=== PATIENT | female | born 2000 | race Two or more races ===

== ENCOUNTER 2018-01-22 20:04 | Emergency (ER) | payer SELFPAY ==
[2018-01-22 20:58] VITALS: BP 121/69; PULSE 69; RESP 16; TEMP 98.4; O2SAT 98
[2018-01-22 22:17] LABS: URINE APPEARANCE SL CLOUDY (CLEAR); URINE BILIRUBIN SMALL (NEGATIVE); URINE BLOOD TRACE-INTACT (NEGATIVE); URINE COLOR YELLOW (YELLOW); URINE GLUCOSE (UA) NEGATIVE (NEGATIVE); URINE LEUKOCYTE ESTERASE NEGATIVE Leu/uL (NEGATIVE); URINE PROTEIN TRACE mg/dL (<30 mg/dL)
[2018-01-22 22:31] LABS: URINE BACTERIA MOD (NEG)
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
== END 2018-01-22 23:10 | disposition left against medical advice (07) ==
LOC: ED 20:04
DX: N89.8 Other specified noninflammatory disorders of vagina (principal); T76.21XA Adult sexual abuse, suspected, initial encounter